=== PATIENT | female | born 1995 | race Caucasian/White ===

== ENCOUNTER → 2016-09-26 | Outpatient (CLI) | payer BC ==
[2016-10-19 10:26] LABS: Mis test requested (Blood) ChromosomeMicroarray
== END | disposition home or self-care (01) ==
LOC: LABWHC1 13:26
PROVIDERS: ATTEND Pediatrics Neonatal-Perinatal Medicine
DX: Z09 Encounter for follow-up examination after completed treatment for conditions other than malignant neoplasm (principal); Z82.79 Family history of other congenital malformations, deformations and chromosomal abnormalities
CPT/HCPCS: 36415; 81229

== ENCOUNTER → 2016-10-26 | Outpatient (CLI) | payer BC ==
[2016-10-26 14:19] LABS: Basophils % (A) 0 %; CH 30.8; Eosinophils # (A) 0.1 k/uL (0-0.7); Eosinophils % (A) 1 %; HCT 36.7 % (34.0-46.0); HDW 2.73; Luc # (Auto) 0.15; Luc % (Auto) 2; Lymphocytes # (A) 1.8 k/uL (1.0-4.8); Lymphocytes % (A) 19 %; MCH 29.8 pg (25.0-35.0); MCHC 32.7 g/dL (31.0-37.0); Mean Platelet Volume 8.7; Monocytes # (A) 0.5 k/uL (0-1.0); Monocytes % (A) 5 %; Neutrophils # (A) 6.8 k/uL (1.3-7.7); Neutrophils % (A) 73 %; RBC 4.03 m/uL (3.80-5.40); RDW 12.6 % (11.5-15.5); WBC 9.3 k/uL (3.8-10.6); WBC (Perox) 9.62
== END | disposition home or self-care (01) ==
LOC: LABPAT 14:06
PROVIDERS: ATTEND Obstetrics & Gynecology
DX: Z01.812 Encounter for preprocedural laboratory examination (principal)
CPT/HCPCS: 85025

== ENCOUNTER 2016-11-02 06:31 | Day surgery (SDC) | payer BC ==
[2016-10-31 12:37] VITALS: BMI 21.9
--- NOTE | 2016-11-01 20:20 | P.HPOB ---
History of Present Illness H&P Date: 11/01/16 Chief Complaint: Family planning This is a 21-year-old female 2 para 1011 who presents for laparoscopic tubal ligation for family planning purposes. Obstetrical history: . History of 1 vaginal delivery at term. 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 Gynecologic history: No history of sexual transmitted diseases. 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 Review of Systems Constitutional: Denies chills, Denies fever Ears, nose, mouth and throat: Denies headache, Denies sore throat Cardiovascular: Denies chest pain, Denies shortness of breath Respiratory: Denies cough Gastrointestinal: Denies abdominal pain, Denies diarrhea, Denies nausea, Denies vomiting Genitourinary: Denies abnormal vaginal bleeding Musculoskeletal: Denies myalgias Neurological: Denies numbness, Denies weakness Psychiatric: Reports depression Endocrine: Denies fatigue, Denies weight change Past Medical History Past Medical History: No Reported History Additional Past Medical History / Comment(s): scoliosis, childhood asthma, history of endometriosis History of Any Multi-Drug Resistant Organisms: None Reported Additional Past Surgical History / Comment(s): left ovarian cyst- laparoscopic [id number], D&C Past Anesthesia/Blood Transfusion Reactions: No Reported Reaction Past Psychological History: No Psychological Hx Reported Smoking Status: Former smoker Past Alcohol Use History: None Reported Additional Past Alcohol Use History / Comment(s): STARTED SMOKING AT AGE 17 QUIT 2013 Past Drug Use History: None Reported - Past Family History Father Family Medical History: Hypertension Mother Family Medical History: No Reported History Medications and Allergies Home Medications Medication Instructions Recorded Confirmed Type No Known Home Medications [No 10/31/16 10/31/16 History Known Home Medications] Allergies Allergy/AdvReac Type Severity Reaction Status Date / Time No Known Allergies Allergy Verified 10/31/16 12:11 Exam Osteopathic Statement: *. No significant issues noted on an osteopathic structural exam other than those noted in the History and Physical/Consult. HEENT: Within normal limits Heart: Regular rate and rhythm Lungs: Clear to auscultation bilaterally Abdomen: Soft, nontender Pelvic exam: Uterus is retroverted, mildly tender, with no adnexal masses or tenderness noted. Extremities: Negative Homans Assessment and Plan (1) Family planning Status: Acute Plan: Proceed with laparoscopic bilateral tubal ligation via fulguration. I have discussed the risks, benefits, and alternative therapies for the above- mentioned procedure and for both sedation/anesthesia as well as necessary blood products administration, if indicated, as they pertain to this patient. The patient has indicated her understanding and acceptance of the risks and procedures discussed.
[~2016-11-02 06:31] MED LIST: DEXAMETHASONE SOD PHOSPHATE 10 MG/ML 1 ML VIAL IV ONE; LACTATED RINGERS 1,000 ML IV SCH; MIDAZOLAM 2 MG/2 ML VIAL IV PRN; ONDANSETRON 4 MG/2 ML VIAL IVP ONE; Pre Op ABX Message 1 EACH MISC MISCELLANE ONE; SCOPOLAMINE 1.5MG/72HR PATCH TRANSDERM ONE
[2016-11-02] MEDS ORDERED: BUPIVACAINE (PF) 0.25% 30 ML VIAL SQ ONE ×3 (07:23)
[2016-11-02] MEDS ORDERED: fentaNYL (PF) 50 MCG/ML 2 ML AMP ONE (07:38)
[2016-11-02] MEDS ORDERED: PROPOFOL 10 MG/ML 20 ML VIAL IV ONE (07:38)
[2016-11-02] MEDS ORDERED: SUCCINYLCHOLINE CHLORIDE 100 MG/5 ML SYR IV ONE (07:38)
[2016-11-02] MEDS ORDERED: ROCURONIUM BROMIDE 10 MG/ML 10 ML VIAL IV ONE (07:38)
[2016-11-02] MEDS ORDERED: MIDAZOLAM 2 MG/2 ML VIAL ONE (07:38)
[2016-11-02] MEDS ORDERED: KETOROLAC 30 MG/ML 1 ML VIAL ONE (07:38)
[2016-11-02] MEDS ORDERED: NEOSTIGMINE 1 MG/ML 10 ML VIAL ONE (07:38)
[2016-11-02] MEDS ORDERED: HYDROmorphone (PF) 1 MG/ML ONE (07:38)
[2016-11-02] MEDS ORDERED: GLYCOPYRROLATE 0.2 MG/ML 2 ML VIAL ONE (07:38)
--- NOTE | 2016-11-02 08:10 | P.OP ---
Date of Procedure: 11/02/16 Preoperative Diagnosis: Family-planning Postoperative Diagnosis: Same Procedure(s) Performed: Laparoscopic bilateral tubal ligation via fulguration Anesthesia: MARINA Surgeon: Leda Martinez Estimated Blood Loss (ml): 5 Pathology: none sent Condition: stable Disposition: same day Indications for Procedure: This is a 21-year-old female 2 para 1011 who presents for laparoscopic tubal ligation for family planning purposes. Operative Findings: Normal uterus ovaries and tubes are noted. Uterus is retroverted and sounded to 9 cm. Appendix is visualized and appears normal. Description of Procedure: The patient is taken to the operating room where she is placed in the dorsal lithotomy position. She is prepped and draped in the normal sterile fashion. Examination is performed under anesthesia. Uterus is found to be in a retroverted position. No adnexal masses were palpated. Next a bivalve speculum was placed in the patient's vagina. A single-tooth tenaculum was used to grasp the anterior lip of the cervix. The uterus was sounded to 9 cm. The kroner uterine manipulator was then inserted through the cervix and the balloon was inflated. The single-tooth tenaculum is removed speculum was removed gloves were changed and attention was turned to the abdomen. The infraumbilical fold was grasped in transverse fashion with 2 Allis clamps. A small transverse incision was made with a scalpel. A hemostat was used to carry the incision down to the underlying layer of fascia. A towel clip was placed above the umbilicus for retraction. A 10 mm disposable bladeless trocar was then inserted into the peritoneal cavity under direct visualization. Once inside, pneumoperitoneum was achieved with CO2 gas. The insert was removed and the camera was placed. Intraperitoneal placement was confirmed. No bleeding was noted. Next the patient was placed in Trendelenburg position. A small stab incision was made suprapubically and a 5 mm disposable bladeless trocar was inserted into the peritoneal cavity under direct visualization. Once inside pelvic contents were inspected. Next a bipolar Kleppinger instrument was placed through the inferior trocar and the midportion of each tube was brought away from other structures and completely fulgurated on approximate 2-3 cm segment of each tube. Excellent hemostasis was noted. A picture was taken. Pneumoperitoneum was released after the inferior trocar was removed under direct visualization. The upper trocar was then removed. The fascial incision was closed with 0 Vicryl suture in interrupted [id number] stitch. The skin incisions were then closed with 4-0 Vicryl suture in a subcuticular fashion. Skin incisions were injected with quarter percent Marcaine. Approximately 6 mL were used. Next the kroner uterine manipulator was removed. Minimal bleeding was noted. All sponge and needle counts are correct. The patient is then taken to recovery room in stable condition.
[2016-11-02 08:29] VITALS: TEMP 97.1
[2016-11-02] MEDS ORDERED: LACTATED RINGERS 1,000 ML IV ONE ×2 (08:44)
[2016-11-02] MEDS: HYDROmorphone 1 MG/ML 1 ML SYRINGE IVP PRN ×4 (08:51→09:15)
[2016-11-02] MEDS ORDERED: diphenhydrAMINE 50 MG/ML 1 ML VIAL IVP ONE (09:54)
[2016-11-02 10:42] VITALS: RESP 18
[2016-11-02] MEDS ORDERED: Acetaminophen-Codeine 300-30mg TAB PO ONE (11:48)
[2016-11-02 12:30] VITALS: BP 116/72; PULSE 73
== END 2016-11-02 12:54 | disposition home or self-care (01) ==
LOC: OR 06:31
PROVIDERS: ATTEND Obstetrics & Gynecology
DX: Z30.2 Encounter for sterilization (principal); N85.4 Malposition of uterus; Z87.891 Personal history of nicotine dependence
CPT/HCPCS: 81025; 58670; J2250; J1200; J1100; J2710; J2405; J3010; J1885; J1170; J0330; J2704

== ENCOUNTER → 2017-03-14 | Outpatient (CLI) | payer BC ==
--- NOTE | 2017-03-15 08:35 | US ---
EXAMINATION TYPE: US pelvic complete DATE OF EXAM: 03/14/2017 COMPARISON: NONE CLINICAL HISTORY: Previous L ovarian cyst N83.20. Pain TECHNIQUE: Transabdominal (TA) Date of LMP: 02/27/2017 EXAM MEASUREMENTS: Uterus: 7.6 x 3.6 x 5.7 cm Endometrial Stripe: 1.3 cm Right Ovary: 2.2 x 1.5 x 1.3 cm Left Ovary: 4.4 x 3.5 x 3.2 cm 1. Uterus: Anteverted wnl 2. Endometrium: wnl 3. Right Ovary: wnl 4. Left Ovary: Complex area with septations visualized measuring 3.9 x 3.1 x 3.2 cm 5. Bilateral Adnexa: wnl 6. Posterior cul-de-sac: wnl Complex area with septations visualized measuring 3.9 x 3.1 x 3.2 cm. Report called to the physician office. IMPRESSION: 1. Complex lesion left ovary measuring 3.9 cm. Differential diagnosis would include hemorrhagic cysts , dermoid and complex neoplasms of the ovary. Ectopic not excluded and also in the differen tial diagnosis. Correlate with serial beta hCG and pelvic ultrasound as clinically warranted.
== END | disposition home or self-care (01) ==
LOC: RADUSMAIN 17:29
PROVIDERS: ATTEND Obstetrics & Gynecology
DX: N83.9 Noninflammatory disorder of ovary, fallopian tube and broad ligament, unspecified (principal)
CPT/HCPCS: 76856

== ENCOUNTER → 2017-03-15 | Outpatient (CLI) | payer BC | END | disposition home or self-care (01) | LOC: LABWHC1 12:20 | PROVIDERS: ATTEND Obstetrics & Gynecology | DX: N83.9 Noninflammatory disorder of ovary, fallopian tube and broad ligament, unspecified (principal) | CPT/HCPCS: 36415; 86304 ==

== ENCOUNTER 2017-04-23 06:37 | Day surgery (SDC) | payer BC ==
[2017-04-16 14:06] VITALS: BMI 23.5
--- NOTE | 2017-04-22 17:08 | P.HPOB ---
History of Present Illness H&P Date: 04/22/17 Chief Complaint: Pelvic pain, left ovarian cyst, dysmenorrhea, menorrhagia This is a 21-year-old female 2 para 1 who presents for dilation and curettage with hysteroscopy and NovaSure endometrial ablation secondary to menorrhagia with regular cycle and dysmenorrhea. Her menses occur monthly but last 5 days with 3 days of severe cramping and heavy and sees to where she has to change a pad every hour. She does have a history of endometriosis and the symptoms have been going on for several months now. She is also consented to a laparoscopy with possible drainage of ovarian cyst, possible lysis of adhesions , and possible ablation of endometriosis, possible left salpingo-oophorectomy only if necessary. The patient did have a recent pelvic ultrasound that showed a complex left ovarian cyst with septations measuring 3.9 x 3.1 x 3.2 cm. Her previous ultrasound showed the same cyst at 1.7 cm. CA-125 level was normal. She has been having increasing pelvic pain over the last 4 months and describes it as sharp and crampy pain in the left lower quadrant area. She does have a history of a previous tubal ligation. She does also have a history of a laparoscopy in 2013 in which a 7 cm left ovarian cyst was drained. Obstetrical history: . History of 1 vaginal delivery. 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 Gynecologic history: She has no history of sexual transmitted diseases. She does have a history of a tubal ligation. 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 Review of Systems Constitutional: Denies chills, Denies fever Eyes: denies blurred vision, denies pain Ears, nose, mouth and throat: Denies headache, Denies sore throat Cardiovascular: Denies chest pain, Denies shortness of breath Respiratory: Denies cough Gastrointestinal: Reports abdominal pain, Denies diarrhea, Denies nausea, Denies vomiting Genitourinary: Reports dysmenorrhea, Reports pelvic pain Menstruation: Reports period heavy, Reports period spotting (Breakthrough bleeding) Musculoskeletal: Denies myalgias Integumentary: Denies pruritus, Denies rash Neurological: Denies numbness, Denies weakness Psychiatric: Denies anxiety, Denies depression Endocrine: Denies fatigue, Denies weight change Past Medical History Past Medical History: Asthma Additional Past Medical History / Comment(s): scoliosis, exercise induced asthma , endometriosis History of Any Multi-Drug Resistant Organisms: None Reported Past Surgical History: Tubal Ligation Additional Past Surgical History / Comment(s): left ovarian cyst, laparoscopic [id number], tubes katt ears Past Anesthesia/Blood Transfusion Reactions: No Reported Reaction Past Psychological History: No Psychological Hx Reported Smoking Status: Never smoker Past Alcohol Use History: None Reported Past Drug Use History: None Reported - Past Family History Father Family Medical History: Hypertension Mother Family Medical History: No Reported History Medications and Allergies Home Medications Medication Instructions Recorded Confirmed Type Albuterol Sulfate [Proair Hfa] 1 - 2 puff INHALATION Q6HR PRN 04/16/17 04/16/17 History Methylphenidate HCl [Ritalin] 5 mg PO BID 04/16/17 04/16/17 History Allergies Allergy/AdvReac Type Severity Reaction Status Date / Time No Known Allergies Allergy Verified 04/16/17 13:51 Exam Osteopathic Statement: *. No significant issues noted on an osteopathic structural exam other than those noted in the History and Physical/Consult. HEENT: Within normal limits Heart: Regular rate and rhythm Lungs: Clear to auscultation bilaterally Abdomen, soft, mild tenderness Pelvic exam: Uterus is small, retroverted, nontender with no adnexal masses palpated but tenderness noted in the left adnexal region Extremities: Negative Homans Assessment and Plan (1) Pelvic pain Status: Acute (2) Complex cyst of left ovary Status: Acute (3) Dysmenorrhea Status: Acute (4) Menorrhagia with regular cycle Status: Acute Plan: Plan is to proceed with dilation and curettage with hysteroscopy and NovaSure endometrial ablation along with laparoscopy with possible drainage of ovarian cyst, possible lysis of adhesions, possible ablation of endometriosis, and possible left salpingo-oophorectomy. I have discussed the risks, benefits, and alternative therapies for the above- mentioned procedure and for both sedation/anesthesia as well as necessary blood products administration, if indicated, as they pertain to this patient. The patient has indicated her understanding and acceptance of the risks and procedures discussed.
[~2017-04-23 06:37] MED LIST changes: +LIDOCAINE 1% 20 ML VIAL (10MG/ML) FOR IV START INTRADERMA PRN
[2017-04-23] MEDS ORDERED: MIDAZOLAM 2 MG/2 ML VIAL ONE (07:48)
[2017-04-23] MEDS ORDERED: GLYCOPYRROLATE 0.2 MG/ML 2 ML VIAL ONE (07:48)
[2017-04-23] MEDS ORDERED: fentaNYL (PF) 50 MCG/ML 2 ML AMP ONE (07:48)
[2017-04-23] MEDS ORDERED: KETOROLAC 30 MG/ML 1 ML VIAL ONE (07:48)
[2017-04-23] MEDS ORDERED: MORPHINE SULFATE 10 MG/ML SYRINGE ONE (07:48)
[2017-04-23] MEDS ORDERED: PROPOFOL 10 MG/ML 20 ML VIAL IV ONE (07:48)
[2017-04-23] MEDS ORDERED: SUCCINYLCHOLINE CHLORIDE 100 MG/5 ML SYR IV ONE (07:48)
[2017-04-23] MEDS ORDERED: NEOSTIGMINE 1 MG/ML 10 ML VIAL ONE (07:48)
[2017-04-23] MEDS ORDERED: ROCURONIUM BROMIDE 10 MG/ML 10 ML VIAL IV ONE (07:48)
[2017-04-23] MEDS ORDERED: LIDOCAINE 1% INJ 10MG/ML (20 ML MDV) ONE (07:48)
[2017-04-23] MEDS ORDERED: BUPIVACAINE (PF) 0.25% 30 ML VIAL SQ ONE ×2 (08:27→08:38)
[2017-04-23 09:04] VITALS: TEMP 97.4
--- NOTE | 2017-04-23 09:10 | P.OP ---
Date of Procedure: 04/23/17 Preoperative Diagnosis: 1. Menorrhagia with regular cycle. 2. Dysmenorrhea. 3. Pelvic pain. 4. Left ovarian cyst. Postoperative Diagnosis: Same Procedure(s) Performed: Dilation and curettage with hysteroscopy and NovaSure endometrial ablation Laparoscopy, drainage of left ovarian cyst, ablation of endometriosis Implants: Anesthesia: FRANTZA Surgeon: Leda Martinez Estimated Blood Loss (ml): 10 Pathology: other (Endometrial curettings) Condition: stable Disposition: same day Indications for Procedure: This is a 21-year-old female 2 para 1 who presents for dilation and curettage with hysteroscopy and NovaSure endometrial ablation secondary to menorrhagia with regular cycle and dysmenorrhea. Her menses occur monthly but last 5 days with 3 days of severe cramping and heavy and sees to where she has to change a pad every hour. She does have a history of endometriosis and the symptoms have been going on for several months now. She is also consented to a laparoscopy with possible drainage of ovarian cyst, possible lysis of adhesions , and possible ablation of endometriosis, possible left salpingo-oophorectomy only if necessary. The patient did have a recent pelvic ultrasound that showed a complex left ovarian cyst with septations measuring 3.9 x 3.1 x 3.2 cm. Her previous ultrasound showed the same cyst at 1.7 cm. CA-125 level was normal. She has been having increasing pelvic pain over the last 4 months and describes it as sharp and crampy pain in the left lower quadrant area. She does have a history of a previous tubal ligation. She does also have a history of a laparoscopy in 2013 in which a 7 cm left ovarian cyst was drained. Operative Findings: Uterus is sounded to 8 cm, cervix is sounded to 3 cm. Uterus is mid position with no adnexal masses palpated. Upon hysteroscopy, and secretory phase is noted with both tubal ostia visualized. A moderate amount of endometrial curettings are obtained. Upon laparoscopy, uterus appears normal. Tubes showed evidence of previous tubal ligation. Right ovary appears normal. Left ovary has a small approximately 2-3 cm hemorrhagic cyst noted with a spot of endometriosis also noted on the left ovary. Posterior cul-de-sac appears clear. Anterior uterus appears clear. Appendix is visualized and appears to have fecaliths within it however no inflammation is noted. Liver edge and gallbladder edge appeared normal. Description of Procedure: The patient is taken to the operating room. She is placed in the dorsal lithotomy position after general anesthesia was given. She is prepped and draped in the normal sterile fashion. Bladder is drained with a catheter and then removed. Pelvic exam is performed under anesthesia. Uterus is found to be mid position with no adnexal masses. She is placed in slight Trendelenburg position. A right angle retractor is used to visualize the cervix. The anterior lip of the cervix is grasped with a single-tooth tenaculum. Cervix is sounded to 3 cm. Uterus is sounded to 8 cm. Cervix is gently dilated with Nichols dilators until a hysteroscope could be passed. Hysteroscopy is performed using normal saline. The above noted findings are noted. Next a polyp forceps is introduced. A minimal amount of tissue was obtained. Next medium-sized size sharp curette was placed. A moderate amount of endometrial curettings were obtained. Next NovaSure array was inserted into the endometrial cavity. Length was set at 5 cm and width was determined to be 4.4 cm. Next cavity assessment was completed and passed on the first try. Next NovaSure array was fired at 121 W for 101 seconds. Next the array was removed, inspected and then discarded. Next the hysteroscope was reinserted. Uniform charring was noted. Pictures were taken. Hysteroscope was removed. Next the kroner uterine manipulator is inserted and the balloon is inflated. Single-tooth tenaculum was removed from the anterior lip of the cervix. Minimal bleeding was noted. All other instruments removed from the vagina. Next attention is turned to the abdomen. Gloves are changed. The infra-vocal fold was grasped in a transverse fashion with 2 Allis clamps. A small transverse incision is made using a scalpel. Next a hemostat is used to carry the incision down to the underlying layer fascia. A towel clip was placed above the umbilicus for retraction. Next an 11 mm disposable bladeless trochars inserted into the peritoneal cavity under direct visualization. Intraperitoneal placement is confirmed and pneumoperitoneum was achieved with CO2 gas. The camera was replaced and no bleeding is noted. Next a small stab incision is made superpubic Jerilyn 5 mm disposable bladeless trochars inserted into the peritoneal cavity under direct visualization. A probe was inserted and pelvic contents are inspected. She is placed in Trendelenburg position to better visualize the pelvic contents. The above noted findings are made. Next an aspirating needle was placed through the inferior trocar and a small stab incision is made into the left ovarian cyst. Dark old blood is extruded. Next a J-hook is used with monopolar cautery to open up this cyst wall. The J-hook is also used to cauterize the endometriosis implant on the left ovary. Excellent hemostasis is noted. There was a small scratch on the left fundus of the uterus from the aspirating needle. This was also cauterized with a J-hook. Excellent hemostasis is noted. Suction irrigation is carried out and excellent hemostasis is again noted. At this point after pictures are taken, the inferior trocar is removed under direct visualization and the pneumoperitoneum is released. The upper trocar is removed. The fascial incision on the upper trocar site is closed with 0 Vicryl suture in interrupted [id number] stitch. The skin incisions are then closed with 4-0 undyed Vicryl suture in a subcuticular fashion. Incision sites are then injected with cautery percent Marcaine. Approximately 7 mL are used. Next the kroner uterine manipulator is deflated and removed. Minimal bleeding is noted. All sponge and needle counts are correct and then the patient is taken to recovery room in stable condition.
[2017-04-23] MEDS: HYDROmorphone 1 MG/ML 1 ML SYRINGE IVP PRN ×2 (09:36→09:42)
[2017-04-23 09:45] VITALS: RESP 16
[2017-04-23] MEDS: MORPHINE SULFATE 4 MG/ML SYRINGE IVP ONE ×2 (09:49→09:56)
[2017-04-23] MEDS ORDERED: SODIUM CHLORIDE 0.9% 1,000 ML IV ONE (09:57)
[2017-04-23] MEDS ORDERED: Acetaminophen-Codeine 300-30mg TAB PO ONE (10:28)
[2017-04-23 11:12] VITALS: BP 118/71; PULSE 81
[2017-04-23] MEDS ORDERED: METOCLOPRAMIDE 5 MG/ML 2 ML VIAL IVP ONE (11:15)
== END 2017-04-23 11:58 | disposition home or self-care (01) ==
LOC: OR 06:37
PROVIDERS: ATTEND Obstetrics & Gynecology
DX: N92.0 Excessive and frequent menstruation with regular cycle (principal); N83.202 Unspecified ovarian cyst, left side; N94.6 Dysmenorrhea, unspecified; J45.909 Unspecified asthma, uncomplicated; Z98.51 Tubal ligation status; Z79.899 Other long term (current) drug therapy
CPT/HCPCS: 81025; 88305; 58563; 49322; J2250; J2270 ×2; J1100; J2710; J2765; J2405; J2001; J3010; J1885; J1170; J0330; J2704

== ENCOUNTER 2017-04-25 09:48 | Emergency (ER) | payer BC ==
[2017-04-25] MEDS ORDERED: RX INFO: IV CONTRAST WAS GIVEN 1 EACH MISC MISCELLANE PRN (10:40)
[2017-04-25] MEDS ORDERED: SODIUM CHLORIDE 0.9% 1,000 ML IV STA (10:40)
[2017-04-25] MEDS ORDERED: ORPHENADRINE 30 MG/ML 2 ML VIAL IVP STA (10:41)
--- NOTE | 2017-04-25 10:55 | ED ---
General Adult HPI - General Source: patient, RN notes reviewed Mode of arrival: ambulatory Limitations: no limitations <Cheyenne Foster - Last Filed: 04/25/17 12:44> <Aime Burris - Last Filed: 04/27/17 07:28> - General Chief complaint: Headache Stated complaint: POST OP COMPLICATIONS Time Seen by Provider: 04/25/17 10:27 - History of Present Illness Initial comments: 21-year-old female presents emergency Department with a chief complaint of back pain. Patient states that she had an ablation and ovarian cyst removal laparoscopically 2 days ago. Patient states she's continued to have this back discomfort up with her neck DOWN to the bottom of her spine. Patient denies a loss of bowel or bladder. She is still anesthesia. Patient denies any fever chills. Patient states her abdomen has continued to hurt since the procedures well. She called her ENTREPRENEUR's office and they informed her that she'll need to be evaluated him to go to the ER. Patient denies any nausea or vomiting with this. Patient states she is just having a lot of discomfort. Patient states that there is no other symptoms at this time.Patient denies any recent fever, chills, shortness of breath, chest pain, nausea vomiting, numbness or tingling, dysuria or hematuria, constipation or diarrhea, headaches or visual changes, or any other current symptoms. (Cheyenne Foster) - Related Data Home Medications Medication Instructions Recorded Confirmed Albuterol Sulfate [Proair Hfa] 1 - 2 puff INHALATION RT-Q6H PRN 04/16/17 Methylphenidate HCl [Ritalin] 5 mg PO BID 04/16/17 04/25/17 Ibuprofen [Motrin] 400 mg PO Q6HR PRN 04/25/17 04/25/17 Previous Rx's Medication Instructions Recorded Acetaminophen-Codeine 300-30mg 1 tab PO Q4H PRN #30 tablet 04/23/17 [Tylenol #3] Hydrocodone/Acetaminophen [Argyle 1 each PO Q6HR PRN #20 tab 04/25/17 5-325] Nitrofurantoin Macrocrystal 100 mg PO BID #14 cap 04/25/17 [Macrodantin] Allergies Allergy/AdvReac Type Severity Reaction Status Date / Time No Known Allergies Allergy Verified 04/25/17 10:32 Review of Systems ROS Other: All systems not noted in ROS Statement are negative. <CristianCheyenne - Last Filed: 04/25/17 12:44> ROS Other: All systems not noted in ROS Statement are negative. <Aime Burris Josie - Last Filed: 04/27/17 07:28> ROS Statement: Those systems with pertinent positive or pertinent negative responses have been documented in the HPI. Past Medical History Past Medical History: No Reported History Additional Past Medical History / Comment(s): scoliosis, childhood asthma History of Any Multi-Drug Resistant Organisms: None Reported Additional Past Surgical History / Comment(s): left ovarian cyst, laparoscopic [id number], d and c Past Anesthesia/Blood Transfusion Reactions: No Reported Reaction Past Psychological History: No Psychological Hx Reported Smoking Status: Former smoker Past Alcohol Use History: None Reported Past Drug Use History: None Reported - Past Family History Father Family Medical History: Hypertension Mother Family Medical History: No Reported History <Cheyenne Foster - Last Filed: 04/25/17 12:44> General Exam Limitations: no limitations <CristianCheyenne - Last Filed: 04/25/17 12:44> <HayesbrandonAime Josie - Last Filed: 04/27/17 07:28> - General Exam Comments Initial Comments: General: The patient is awake and alert, in no distress, and does not appear acutely ill. Eye: Pupils are equal, round and reactive to light, extra-ocular movements are intact; there is normal conjunctiva bilaterally. No signs of icterus. Ears, nose, mouth and throat: There are moist mucous membranes and no oral lesions. Neck: The neck is supple, there is no tenderness. Cardiovascular: There is a regular rate and rhythm. No murmur, rub or gallop is appreciated. Respiratory: Lungs are clear to auscultation, respirations are non-labored, breath sounds are equal. No wheezes, stridor, rales, or rhonchi. Gastrointestinal: Surgical incision sites appear well. Soft, non-distended, mildly diffusely tender abdomen without masses or organomegaly noted. There is no rebound or guarding present. No CVA tenderness. Bowel sounds are unremarkable. Back: There is no tenderness to palpation in the midline. There is no obvious deformity. No rashes noted. Musculoskeletal: Normal ROM, no tenderness, There is no pedal edema. There is no calf tenderness or swelling. Sensation intact. Pulses equal bilaterally 2+. Neurological: CN II-XII intact, There are no obvious motor or sensory deficits. Coordination appears grossly intact. Speech is normal. Skin: Skin is warm and dry and no rashes or lesions are noted. Psychiatric: Cooperative, appropriate mood & affect, normal judgment. 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 At this time patient's CAT scan has been reviewed Dr. Martinez was contacted by Dr. Chavez. This and we will start patient on Argyle for home for pain as well as antibiotics. We discussed follow-up return parameters all patient's questions. She stated she understood and she is very plan. She will be discharged. (Cheyenne Foster) 21-year-old female 2 days postop laparoscopic abdominal surgery. Patient is presenting with chief complaint of abdominal pain, dysuria, and headache. On initial evaluation patient is somewhat tachycardic and dehydrated. She does receive IV hydration in the emergency department. CT is obtained and does show intraperitoneal air consistent with recent laparoscopic procedure. No other acute findings. Urinalysis is positive for signs of infection. Case is discussed with Dr. Martinez. Patient will be given stronger pain medication, and antibiotics for urinary tract infection. She'll follow-up with Dr. Martinez in the next several days (Aime Burris) - Lab Data Lab Results 04/25/17 04/25/17 04/25/17 Range/Units 11:25 11:25 11:25 WBC 5.7 (3.8-10.6) k/uL RBC 4.36 (3.80-5.40) m/uL Hgb 13.1 (11.4-16.0) gm/dL Hct 38.9 (34.0-46.0) % MCV 89.2 (80.0-100.0) fL MCH 30.0 (25.0-35.0) pg MCHC 33.7 (31.0-37.0) g/dL RDW 14.0 (11.5-15.5) % Plt Count 166 (150-450) k/uL Neutrophils % 83 % Lymphocytes % 9 % Monocytes % 6 % Eosinophils % 1 % Basophils % 0 % Neutrophils # 4.7 (1.3-7.7) k/uL Lymphocytes # 0.5 L (1.0-4.8) k/uL Monocytes # 0.3 (0-1.0) k/uL Eosinophils # 0.0 (0-0.7) k/uL Basophils # 0.0 (0-0.2) k/uL Sodium 137 (137-145) mmol/L Potassium 4.1 (3.5-5.1) mmol/L Chloride 102 (98-107) mmol/L Carbon Dioxide 26 (22-30) mmol/L Anion Gap 9 mmol/L BUN 7 (7-17) mg/dL Creatinine 0.83 (0.52-1.04) mg/dL Est GFR (MDRD) Af Amer >60 (>60 ml/min/1.73 sqM) Est GFR (MDRD) Non-Af >60 (>60 ml/min/1.73 sqM) Glucose 107 H (74-99) mg/dL Calcium 9.2 (8.4-10.2) mg/dL Total Bilirubin 0.6 (0.2-1.3) mg/dL AST 18 (14-36) U/L ALT 23 (9-52) U/L Alkaline Phosphatase 64 (38-126) U/L Total Protein 6.7 (6.3-8.2) g/dL Albumin 4.0 (3.5-5.0) g/dL Urine Color Light Yellow Urine Appearance Cloudy H (Clear) Urine pH 7.5 (5.0-8.0) Ur Specific [place] 1.008 (1.001-1.035) Urine Protein 1+ H (Negative) Urine Glucose (UA) Negative (Negative) Urine Ketones Negative (Negative) Urine Blood Moderate H (Negative) Urine Nitrite Negative (Negative) Urine Bilirubin Negative (Negative) Urine Urobilinogen <2.0 (<2.0) mg/dL Ur Leukocyte Esterase Large H (Negative) Urine RBC 60 H (0-5) /hpf Urine WBC >182 H (0-5) /hpf Ur Squamous Epith Cells <1 (0-4) /hpf Urine Mucus Rare H (None) /hpf Disposition Time of Disposition: 12:45 <Cheyenne Foster - Last Filed: 04/25/17 12:44> <Aime Burris - Last Filed: 04/27/17 07:28> Clinical Impression: UTI (urinary tract infection), Pelvic pain Disposition: HOME SELF-CARE Condition: Stable Instructions: Urinary Tract Infection in Women (ED) Additional Instructions: Please use medication as discussed. Please follow up with family doctor if symptoms have not improved over the next two days. Please return to the emergency room if your symptoms increase or worsen or for any other concerns. Prescriptions: Hydrocodone/Acetaminophen [Argyle 5-325] 1 each PO Q6HR PRN #20 tab PRN Reason: Pain Nitrofurantoin Macrocrystal [Macrodantin] 100 mg PO BID #14 cap Referrals: Tray Carranza MD [Primary Care Provider] - 1-2 days
[2017-04-25 11:46] LABS: Basophils % (A) 0 %; CH 30.7; CHCM 34.5; Eosinophils % (A) 1 %; HCT 38.9 % (34.0-46.0); HDW 2.85; HGB 13.1 gm/dL (11.4-16.0); Luc # (Auto) 0.04; Luc % (Auto) 1; Lymphocytes # (A) 0.5 k/uL (1.0-4.8); Lymphocytes % (A) 9 %; MCHC 33.7 g/dL (31.0-37.0); MCV 89.2 fL (80.0-100.0); Mean Platelet Volume 8.3; Monocytes # (A) 0.3 k/uL (0-1.0); Monocytes % (A) 6 %; Neutrophils # (A) 4.7 k/uL (1.3-7.7); Neutrophils % (A) 83 %; RBC 4.36 m/uL (3.80-5.40); WBC 5.7 k/uL (3.8-10.6); WBC (Perox) 5.21
[2017-04-25 11:53] LABS: Appearance,Urine Cloudy (Clear); Bilirubin,Urine Negative (Negative); Glucose,Urine (UA) Negative (Negative); Ketones,Urine Negative (Negative); Leukocyte Esterase,Urine Large (Negative); Mucus,Urine Rare /hpf; Nitrite,Urine Negative (Negative); PH, Urine 7.5 (5.0-8.0); Particle Count 2741; Protein,Urine 1+ (Negative); RBC,Urine 60 /hpf (0-5); Specific Gravity,Urine 1.008 (1.001-1.035); Squamous Epithelial Cell,Urine <1 /hpf (0-4); UA Billing (MACRO vs. MICRO) MICRO; Urobilinogen,Urine <2.0 mg/dL (<2.0); WBC,Urine >182 /hpf (0-5)
[2017-04-25 11:58] LABS: ALT 23 U/L (9-52); AST 18 U/L (14-36); Alkaline Phosphatase 64 U/L (38-126); Anion Gap 9 mmol/L; Blood Urea Nitrogen 7 mg/dL (7-17); Calcium 9.2 mg/dL (8.4-10.2); Carbon Dioxide 26 mmol/L (22-30); Chloride 102 mmol/L (98-107); Glucose 107 mg/dL (74-99); Non-African American GFR(MDRD) >60 (>60 ml/min/1.73 sqM); Potassium 4.1 mmol/L (3.5-5.1); Sodium 137 mmol/L (137-145); Total Bilirubin 0.6 mg/dL (0.2-1.3); Total Protein 6.7 g/dL (6.3-8.2)
--- NOTE | 2017-04-25 12:20 | CT ---
EXAMINATION TYPE: CT abdomen pelvis w con DATE OF EXAM: 04/25/2017 HISTORY: Patient complains of low back pain, nausea, and headache post D&C and ablation on Saturday la paroscopically. CT DLP: 440.6mGycm Automated Exposure Control for Dose Reduction was Utilized. CONTRAST: CT scan of the abdomen and pelvis is performed with IV Contrast, patient injected with 100 mL of Omni paque 300. COMPARISON: 03/14/2017 FINDINGS: A moderate amount of pneumoperitoneum predominates anteriorly within the upper abdomen but insinuates between bowel loops and within the gallbladder fossa. Air is also noted within the endometrial cavit y without appreciable focal defect of the uterus. Pneumoperitoneum pneumoperitoneum is presumably pos tsurgical. Small amount of low-density pelvic free fluid is seen as well as redemonstration of a comp soham left adnexal lesion measuring approximately 3.5 x 2.9 cm. This is similar in size from the prior pelvic ultrasound of 03/14/2017. Complex septations are again seen within this region. Follicular blanco ges are noted of the right ovary. The endometrial cavity also contains blood products, status post D&C . The liver, spleen, kidneys, adrenal glands, and pancreas are of normal enhancement and morphology. No gross adenopathy within the abdomen or pelvis. Osseous structures are intact. Multiple prominent fl uid-filled bowel loops are nondilated. IMPRESSION: 1. Presumably postsurgical pneumoperitoneum and postsurgical air bubbles blood products in the endome trial cavity. 2. Similar appearing complex left adnexal lesion as well as right follicular changes.
[2017-04-25] MEDS ORDERED: HYDROcodone/APAP 5-325MG 1 EACH TAB PO STA (12:33)
[2017-04-25] MEDS ORDERED: SODIUM CHLORIDE 0.9% 1,000 ML IV ONE (12:33)
[2017-04-25 13:41] VITALS: BP 108/76; PULSE 84; RESP 18; TEMP 99
== END 2017-04-25 13:50 | disposition home or self-care (01) ==
LOC: EC 09:48
DX: N39.0 Urinary tract infection, site not specified (principal); R10.2 Pelvic and perineal pain; Z87.891 Personal history of nicotine dependence; Z79.899 Other long term (current) drug therapy
CPT/HCPCS: 36415; 80053; 85025; 81001; 87040; 87086; 74177; 99284; 96365; 96375; 96361 ×2; J2360; J0696; Q9967

== ENCOUNTER → 2018-07-11 | Outpatient (CLI) | payer BC ==
[2018-07-11 16:46] LABS: Basophils % (A) 0 %; Eosinophils # (A) 0.1 k/uL (0-0.7); Eosinophils % (A) 1 %; HCT 38.4 % (34.0-46.0); HGB 12.9 gm/dL (11.4-16.0); Lymphocytes # (A) 2.2 k/uL (1.0-4.8); Lymphocytes % (A) 25 %; MCH 30.4 pg (25.0-35.0); MCHC 33.6 g/dL (31.0-37.0); MCV 90.5 fL (80.0-100.0); Mean Platelet Volume 7.6; Monocytes # (A) 0.4 k/uL (0-1.0); Monocytes % (A) 4 %; Neutrophils # (A) 6.1 k/uL (1.3-7.7); Neutrophils % (A) 68 %; Platelet Count 246 k/uL (150-450); RBC 4.24 m/uL (3.80-5.40)
[2018-07-11 16:55] LABS: Anion Gap 9 mmol/L; Blood Urea Nitrogen 16 mg/dL (7-17); Calcium 9.7 mg/dL (8.4-10.2); Carbon Dioxide 25 mmol/L (22-30); Chloride 105 mmol/L (98-107); Glucose 87 mg/dL (74-99); Potassium 3.9 mmol/L (3.5-5.1); Sodium 139 mmol/L (137-145)
== END ==
LOC: LABPAT 16:04
PROVIDERS: ATTEND Obstetrics & Gynecology
DX: Z01.812 Encounter for preprocedural laboratory examination (principal)
CPT/HCPCS: 36415; 80048; 85025

== ENCOUNTER 2018-07-15 07:30 | Inpatient (IN) | payer BC ==
[2018-07-09 14:59] VITALS: BMI 26.9
--- NOTE | 2018-07-20 16:33 | P.HPOB ---
History of Present Illness H&P Date: 07/20/18 Chief Complaint: Pelvic pain, left ovarian cyst, endometriosis This is a 22-year-old female 2 para 1 who presents for total abdominal hysterectomy with left salpingo-oophorectomy and right salpingectomy secondary to large left ovarian cyst, pelvic pain, and history of endometriosis. In addition she complains of dyspareunia and pelvic pain and pelvic pressure. Her ultrasound showed a uterus measuring 6.7 x 3.8 x 3.2 cm with an endometrial thickness of 5 mm. Her right ovary appeared normal and her left ovary was enlarged at 6.6 cm with a complex 4 cm hemorrhagic cyst in a separate 3.4 cm septated cyst. Patient has already had an endometrial ablation and still continues to have pelvic pain. In addition she has already had laparoscopic drainage of left ovarian cyst and ablation of the endometriosis in 2013 and in 2016. The patient would like definitive surgical treatment to decrease her pelvic pain. She has already had a tubal ligation. She has tried control pills without success. Obstetrical history: . 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 Gynecologic history: No history of sexual transmitted diseases. She does have a history of a tubal ligation. She also has a history of endometriosis. Social history: She is . 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 Review of Systems Constitutional: Reports fatigue, Denies chills, Denies fever Eyes: denies blurred vision, denies pain Ears, nose, mouth and throat: Reports headache, Denies sore throat Cardiovascular: Denies chest pain, Denies shortness of breath Respiratory: Denies cough Gastrointestinal: Reports abdominal pain Genitourinary: Reports dyspareunia, Reports pelvic pain Menstruation: Reports amenorrhea Musculoskeletal: Denies myalgias Integumentary: Denies pruritus, Denies rash Neurological: Denies numbness, Denies weakness Psychiatric: Reports anxiety, Reports depression, Reports difficulty concentrating, Reports insomnia Endocrine: Reports weight change Hematologic/Lymphatic: Reports easy bruising Past Medical History Past Medical History: Asthma, Musculoskeletal Disorder Additional Past Medical History / Comment(s): Scoliosis, childhood asthma. Endometriosis History of Any Multi-Drug Resistant Organisms: None Reported Past Surgical History: Tubal Ligation, Uterine Ablation Additional Past Surgical History / Comment(s): Left ovarian cyst, laparoscopic drainage, multiple times, D&C. Past Anesthesia/Blood Transfusion Reactions: No Reported Reaction Past Psychological History: No Psychological Hx Reported Smoking Status: Former smoker Past Alcohol Use History: None Reported Additional Past Alcohol Use History / Comment(s): Quit smoking 3-4 yrs ago, smoked socially. Past Drug Use History: None Reported - Past Family History Father Family Medical History: Hypertension Mother Family Medical History: No Reported History Medications and Allergies Home Medications Medication Instructions Recorded Confirmed Type Citalopram Hydrobromide [CeleXA] 20 mg PO QAM 07/09/18 07/09/18 History Allergies Allergy/AdvReac Type Severity Reaction Status Date / Time No Known Allergies Allergy Verified 07/09/18 14:46 Exam Osteopathic Statement: *. No significant issues noted on an osteopathic structural exam other than those noted in the History and Physical/Consult. HEENT: Within normal limits Heart: Regular rate and rhythm Lungs: Clear to auscultation bilaterally Abdomen: Soft, nontender Pelvic exam: Uterus is anteverted, nontender, with no adnexal masses palpated. Left adnexa is tender. Extremities: Negative Homans Assessment and Plan (1) Pelvic pain Status: Acute Code(s): R10.2 - PELVIC AND PERINEAL PAIN SNOMED Code(s): 78429559 (2) Endometriosis Status: Acute Code(s): N80.9 - ENDOMETRIOSIS, UNSPECIFIED SNOMED Code(s): 588800612 (3) Complex cyst of left ovary Status: Acute Code(s): N83.292 - OTHER OVARIAN CYST, LEFT SIDE SNOMED Code(s ): 305282956 Plan: Proceed with total abdominal hysterectomy with left salpingo-oophorectomy and right salpingectomy. I have discussed the risks, benefits, and alternative therapies for the above- mentioned procedure and for both sedation/anesthesia as well as necessary blood products administration, if indicated, as they pertain to this patient. The patient has indicated her understanding and acceptance of the risks and procedures discussed.
[2018-07-21] MEDS ORDERED: ceFAZolin IN SWFI 2 GM/20 ML SYRINGE IVP ONE (05:00)
[2018-07-21] MEDS ORDERED: MIDAZOLAM 2 MG/2 ML VIAL IV PRN (05:42)
[2018-07-21] MEDS ORDERED: DEXAMETHASONE SOD PHOSPHATE 10 MG/ML 1 ML VIAL IV ONE (05:42)
[2018-07-21] MEDS ORDERED: ONDANSETRON 4 MG/2 ML VIAL IVP ONE (05:42)
[2018-07-21] MEDS ORDERED: LACTATED RINGERS 1,000 ML IV SCH (05:42)
[2018-07-21] MEDS ORDERED: SCOPOLAMINE 1.5MG/72HR PATCH TRANSDERM ONE (05:42)
[2018-07-21] MEDS ORDERED: fentaNYL (PF) 50 MCG/ML 2 ML AMP INTRATHECA ONE (06:35)
[2018-07-21] MEDS ORDERED: LIDOCAINE 1% 20 ML VIAL (10MG/ML) FOR IV START INTRADERMA ONE (06:41)
[2018-07-21] MEDS ORDERED: MORPHINE SULFATE 2 MG/ML SYRINGE IVP PRN (07:11)
[2018-07-21] MEDS ORDERED: NALOXONE 0.4 MG/ML 1 ML VIAL IV PRN (07:11)
[2018-07-21] MEDS ORDERED: NALBUPHINE 10 MG/ML VIAL (10ML MDV) IV PRN (07:11)
[2018-07-21] MEDS ORDERED: METOCLOPRAMIDE 5 MG/ML 2 ML VIAL IVP PRN ×2 (07:11→10:30)
[2018-07-21] MEDS ORDERED: ONDANSETRON 4 MG/2 ML VIAL IVP PRN ×2 (07:11→10:30)
[2018-07-21] MEDS ORDERED: diphenhydrAMINE 50 MG/ML 1 ML VIAL IVP PRN ×2 (07:11→10:30)
[2018-07-21] MEDS ORDERED: LIDOCAINE 1% INJ 10MG/ML (20 ML MDV) ONE (07:31)
[2018-07-21] MEDS ORDERED: GLYCOPYRROLATE 0.2 MG/ML 2 ML VIAL ONE (07:31)
[2018-07-21] MEDS ORDERED: fentaNYL (PF) 50 MCG/ML 2 ML AMP ONE (07:31)
[2018-07-21] MEDS ORDERED: MIDAZOLAM 2 MG/2 ML VIAL ONE (07:31)
[2018-07-21] MEDS ORDERED: SUCCINYLCHOLINE CHLORIDE 100 MG/5 ML SYR IV ONE (07:31)
[2018-07-21] MEDS ORDERED: PROPOFOL 10 MG/ML 20 ML VIAL IV ONE (07:31)
[2018-07-21] MEDS ORDERED: MORPHINE SULFATE (PF) 0.3 MG/0.3 ML SYR ONE (07:31)
[2018-07-21] MEDS ORDERED: NEOSTIGMINE 1 MG/ML 10 ML VIAL ONE (07:31)
[2018-07-21] MEDS ORDERED: ROCURONIUM BROMIDE 10 MG/ML 10 ML VIAL IV ONE (07:31)
[2018-07-21] MEDS ORDERED: LACTATED RINGERS 1,000 ML IV ONE (08:35)
--- NOTE | 2018-07-21 08:42 | P.OP ---
Date of Procedure: 07/21/18 Preoperative Diagnosis: Pelvic pain Large left ovarian cyst Endometriosis Postoperative Diagnosis: Same Procedure(s) Performed: Total abdominal hysterectomy with left salpingo-oophorectomy and right salpingectomy Anesthesia: GETA, spinal (Duramorph) Surgeon: Leda Martinez Pigment Mixer #1: Azam Palm Estimated Blood Loss (ml): 200 Pathology: other (Uterus with cervix, left tube and ovary, right fallopian tube) Condition: stable Disposition: floor Indications for Procedure: This is a 22-year-old female 2 para 1 who presents for total abdominal hysterectomy with left salpingo-oophorectomy and right salpingectomy secondary to large left ovarian cyst, pelvic pain, and history of endometriosis. In addition she complains of dyspareunia and pelvic pain and pelvic pressure. Her ultrasound showed a uterus measuring 6.7 x 3.8 x 3.2 cm with an endometrial thickness of 5 mm. Her right ovary appeared normal and her left ovary was enlarged at 6.6 cm with a complex 4 cm hemorrhagic cyst in a separate 3.4 cm septated cyst. Patient has already had an endometrial ablation and still continues to have pelvic pain. In addition she has already had laparoscopic drainage of left ovarian cyst and ablation of the endometriosis in 2013 and in 2017. The patient would like definitive surgical treatment to decrease her pelvic pain. She has already had a tubal ligation. She has tried control pills without success. Operative Findings: Uterus is small with no abnormalities visualized. Left ovary is enlarged with a chocolate cyst noted. Left tube and ovary are also adherent to the pelvic sidewall. Right tube appears normal and right ovary appears normal. Description of Procedure: The patient is taken to the operating room where she is placed in the dorsal supine position. She is prepped and draped in the normal sterile fashion including Cuellar catheter insertion and vaginal prep. A Pfannenstiel skin incision is made through the previous laparotomy scar with a scalpel. A second knife was used to carry the incision down to the underlying layer of fascia. The fascia was nicked in the midline with a scalpel and then extended laterally bilaterally with Tena scissors. The superior aspect of the fascial incision was grasped with Sonja clamps, elevated off the underlying rectus muscle in the midline and then cut with Tena scissors. The inferior aspect of the fascial incision was grasped with Sonja clamps, elevated off the underlying rectus muscle in the midline and then cut with Tena scissors. Next the peritoneum was identified and entered sharply with Tena scissors. It is extended superiorly and in fairly with Metzenbaum scissors with good visualization of underlying structures. Next the Rk retractor is placed in the bladder blade was inserted. The bowels were packed with a 3 yard laparotomy sponge. Next the uterus is brought up incision and the corneal regions are grasped with Monik clamps on both sides. The left tube and ovary was manually dissected away from the left pelvic sidewall. In the process a large chocolate cyst was ruptured. The fluid was suctioned. The uterine ovarian ligament is clamped with a Denys clamp, cut with Tena scissors, and then sutured with 0 Vicryl suture in Denys transfixion stitch. The remaining pedicle including the mesosalpinx in the uterine ovarian ligament were clamped with a Denys clamp, cut with Tena scissors, and sutured with 0 Vicryl suture in Denys transfixion stitch. The right fallopian tube was then grasped with a Denys clamp, cut, and then removed from the field. The uterine ovarian ligament is then clamped with a Denys clamp, cut with Tena scissors, and sutured with 0 Vicryl suture in Denys transfixion stitch. The vesicouterine peritoneum was sharply dissected away from the bladder with Metzenbaum scissors and pushed inferiorly. The uterine arteries are then cut with Tena scissors, and sutured with 0 Vicryl suture in Denys transfixion stitches. Next the cardinal ligaments were clamped on either side with Denys clamp, cut with Tena scissors, and sutured with 0 Vicryl suture in Denys transfixion stitches. The uterosacral ligaments are clamped on either side with Denys clamps, cut with Tena scissors, and sutured with 0 Vicryl suture in Denys transfixion stitches on either side. The edges of the vaginal cuff were clamped on either side with a Denys clamp, cut with Tena scissors, and sutured with 0 Vicryl suture in Denys transfixion stitches and held on either side. The vaginal mucosa was then cut just below the level of the cervix and the specimen is removed from the field. The edges of the vaginal cuff were held with Sonja clamps. Next the previously held corners of each side of the vaginal cuff were then whipstitched along the connective tissue on either side and brought through the corner of the cuff and tied. Next the vaginal cuff was sutured with 0 Vicryl suture in a running locked fashion. Hemostasis was noted. Copious irrigation is carried out with warm saline. Excellent hemostasis is noted. The vesicouterine peritoneum was then reapproximated to the cuff with 3-0 Vicryl suture in a running fashion. Irrigation was carried out. Excellent hemostasis was noted. All sponges are removed from the abdomen. The peritoneum is then closed with 0 Vicryl suture in a running fashion. The muscle was then reapproximated with 0 Vicryl suture in interrupted fashion. The fascia layer is then closed with 0 PDS suture in a running fashion with the knots buried on either side and in the midline. Next the subcutaneous tissues closed with 2-0 Vicryl suture in a running fashion. The skin is closed with norberto. All sponge and needle counts are correct and the patient is taken to recovery room in stable condition.
[2018-07-21] MEDS: HYDROmorphone 1 MG/ML 1 ML SYRINGE IVP PRN ×4 (08:49→09:20)
[2018-07-21] MEDS ORDERED: MIDAZOLAM 2 MG/2 ML VIAL IV ONE (09:49)
[2018-07-21] MEDS ORDERED: ZOLPIDEM 5 MG TAB PO PRN (10:30)
[2018-07-21] MEDS ORDERED: HYDROcodone/APAP 5-325MG 1 EACH TAB PO PRN (10:30)
[2018-07-21] MEDS: CITALOPRAM HYDROBROMIDE 20 MG TAB PO SCH (11:00)
[2018-07-21] MEDS: SENNOSIDES-DOCUSATE SODIUM 1 EACH TAB PO SCH ×2 (11:00→19:59)
[2018-07-21] MEDS: KETOROLAC 30 MG/ML 1 ML VIAL IVP PRN ×2 (13:50→19:59)
[2018-07-21] MEDS: LACTATED RINGERS 1,000 ML IV SCH ×2 (21:06→21:07)
[2018-07-21] MEDS: HYDROcodone/APAP 7.5-325MG 1 EACH TAB PO PRN (23:19)
[2018-07-22] MEDS: HYDROcodone/APAP 7.5-325MG 1 EACH TAB PO PRN (04:52)
[2018-07-22] MEDS ORDERED: ACETAMINOPHEN TAB 325 MG TAB PO PRN (07:44)
--- NOTE | 2018-07-22 08:55 | P.PN ---
Subjective Progress Note Date: 07/22/18 Principal diagnosis: Status post OWEN LSO with right salpingectomy postoperative day #1 Patient has been doing okay. She is ambulating. She is not passing flatus yet but she is burping. Her pain is fairly well controlled with ibuprofen and Hope. Bleeding has been minimal. She is urinating. Objective - Vital Signs Vital signs: Vital Signs Temp 97.7 F 07/22/18 04:00 Pulse 94 07/22/18 04:00 Resp 14 07/22/18 06:00 BP 100/63 07/22/18 04:00 Pulse Ox 99 07/22/18 00:00 Intake & Output 07/21/18 07/22/18 07/22/18 18:59 06:59 18:59 Intake Total 1750 Output Total 600 850 Balance 1150 -850 Weight 78.018 kg Intake: IV 1750 Invasive Line 1 1000 Output: Urine 400 850 Uretheral (Cuellar) 300 550 Estimated Blood Loss 200 - Constitutional General appearance: Present: no acute distress - Gastrointestinal Gastrointestinal Comment(s): Incision is clean dry and intact with norberto in place General gastrointestinal: Present: decreased bowel sounds (Faint bowel sounds 4 ), soft, tenderness (Mild) Assessment and Plan Assessment: Status post OWEN LSO with right salpingectomy postoperative day #1 (1) Pelvic pain Current Visit: No Status: Acute Code(s): R10.2 - PELVIC AND PERINEAL PAIN SNOMED Code(s): 17212763 (2) Endometriosis Current Visit: No Status: Acute Code(s): N80.9 - ENDOMETRIOSIS, UNSPECIFIED SNOMED Code(s): 030620478 (3) Complex cyst of left ovary Current Visit: No Status: Acute Code(s): N83.292 - OTHER OVARIAN CYST, LEFT SIDE SNOMED Code(s): 732788838 Plan: Will advance diet as tolerated after flatus. Encouraged ambulation. Advised to alternate between Hope and ibuprofen for pain control.
[2018-07-22 08:58] LABS: Basophils % (A) 0 %; Eosinophils % (A) 1 %; HCT 35.7 % (34.0-46.0); HGB 12.1 gm/dL (11.4-16.0); Lymphocytes # (A) 2.1 k/uL (1.0-4.8); Lymphocytes % (A) 28 %; MCH 30.6 pg (25.0-35.0); MCHC 33.9 g/dL (31.0-37.0); MCV 90.3 fL (80.0-100.0); Mean Platelet Volume 8.2; Monocytes # (A) 0.3 k/uL (0-1.0); Monocytes % (A) 4 %; Neutrophils % (A) 66 %; Platelet Count 200 k/uL (150-450); RBC 3.95 m/uL (3.80-5.40); RDW 12.9 % (11.5-15.5); WBC 7.5 k/uL (3.8-10.6)
[2018-07-22] MEDS: KETOROLAC 30 MG/ML 1 ML VIAL IVP PRN (09:03)
[2018-07-22] MEDS: SENNOSIDES-DOCUSATE SODIUM 1 EACH TAB PO SCH (09:05)
[2018-07-22] MEDS: CITALOPRAM HYDROBROMIDE 20 MG TAB PO SCH (10:02)
[2018-07-22] MEDS: SIMETHICONE 80 MG CHEWABLE PO PRN ×2 (12:05→16:24)
[2018-07-22] MEDS: IBUPROFEN 600 MG TAB PO PRN (13:48)
[2018-07-22 14:12] VITALS: RESP 16
[2018-07-22] MEDS: diphenhydrAMINE 50 MG CAP PO SCH (16:22)
[2018-07-23] MEDS: IBUPROFEN 600 MG TAB PO PRN ×2 (00:09→08:17)
[2018-07-23] MEDS: SENNOSIDES-DOCUSATE SODIUM 1 EACH TAB PO SCH ×2 (00:11→09:03)
[2018-07-23] MEDS: diphenhydrAMINE 50 MG CAP PO SCH ×2 (00:52→09:03)
[2018-07-23] MEDS: SIMETHICONE 80 MG CHEWABLE PO PRN (01:59)
[2018-07-23] MEDS: CITALOPRAM HYDROBROMIDE 20 MG TAB PO SCH (08:17)
--- NOTE | 2018-07-23 08:26 | P.DS ---
Providers Date of admission: 07/21/18 05:48 Expected date of discharge: 07/23/18 Attending physician: Leda Martinez Primary care physician: Tray Billt - Discharge Diagnosis(es) (1) Pelvic pain Current Visit: No Status: Acute (2) Endometriosis Current Visit: No Status: Acute (3) Complex cyst of left ovary Current Visit: No Status: Acute Hospital Course: This is a 22-year-old female who underwent a total abdominal hysterectomy with left salpingo-oophorectomy and right salpingectomy on 07/21/2018. Her postoperative course has been essentially uncomplicated. She states her pain is been fairly well-controlled with ibuprofen and [place]. She does complain of a headache off-and-on. She has been urinating without difficulty. She has started to pass some flatus. She feels her pain is more related to gas. She is tolerating regular diet. Vital signs are stable. Abdomen is soft with positive bowel sounds 4. Incision is clean dry and intact with norberto in place. Extremities show negative Homans. Impression is status post total abdominal hysterectomy with left salpingo-oophorectomy and right salpingectomy postoperative day #2. Plan is to discharge home today. She will be given a prescription for ibuprofen and [place]. She has signed the opioid start talking form and was counseled regarding narcotics. Maps was checked. Norberto will be removed and Steri-Strips placed prior to discharge. Routine postoperative instructions are given. She is advised follow-up in the office in approximately 1 week for a postoperative check. She is advised to call the office if she has any further questions or concerns prior to her appointment time. Procedures: Total abdominal hysterectomy with left salpingo-oophorectomy and right salpingectomy on 07/21/2018 Patient Condition at Discharge: Stable Plan - Discharge Summary Discharge Rx Participant: Yes New Discharge Prescriptions: New HYDROcodone/APAP 7.5-325MG [[place] 7.5-325] 1 each PO Q6H PRN #28 tab PRN Reason: Moderate To Severe Pain Ibuprofen [Motrin] 600 mg PO Q6HR PRN #60 tab PRN Reason: Mild Discomfort Continue Citalopram Hydrobromide [CeleXA] 20 mg PO QAM Discharge Medication List Citalopram Hydrobromide [CeleXA] 20 mg PO QAM 07/09/18 [History] HYDROcodone/APAP 7.5-325MG [[place] 7.5-325] 1 each PO Q6H PRN #28 tab 07/23/18 [ Rx] Ibuprofen [Motrin] 600 mg PO Q6HR PRN #60 tab 07/23/18 [Rx] Follow up Appointment(s)/Referral(s): Leda Martinez DO [Doctor of Osteopathic Medicine] - 1 Week Activity/Diet/Wound Care/Special Instructions: Activity as tolerated. Diet as tolerated. May shower, but no tub baths for 1 week. No intercourse for 6 weeks. No heavy lifting. Discharge Disposition: HOME SELF-CARE
[2018-07-23 08:29] VITALS: BP 128/74; PULSE 95; TEMP 97.9
== END 2018-07-23 10:45 | disposition home or self-care (01) | DRG 743 ==
LOC: 2ORMAIN 07-21 05:48 → 4FBP 07-21 08:35
PROVIDERS: ADMIT Obstetrics & Gynecology; ATTEND Obstetrics & Gynecology
PROC: 0UT10ZZ Resection of Left Ovary, Open Approach (ICD-10-PCS; principal; 2018-07-21 07:30)
PROC: 0UT90ZZ Resection of Uterus, Open Approach (ICD-10-PCS; principal; 2018-07-21 07:30)
PROC: 0UT70ZZ Resection of Bilateral Fallopian Tubes, Open Approach (ICD-10-PCS; principal; 2018-07-21 07:30)
DX: N80.1 Endometriosis of ovary (principal); N83.292 Other ovarian cyst, left side; M41.9 Scoliosis, unspecified; N94.10 Unspecified dyspareunia; Z82.49 Family history of ischemic heart disease and other diseases of the circulatory system; Z87.891 Personal history of nicotine dependence
CPT/HCPCS: 81025; 85025; 86850; 86900; 86901; 88307

== ENCOUNTER 2019-03-21 13:57 | Emergency (ER) | payer OTHER, BC ==
[2019-03-21 14:11] VITALS: BP 135/89; PULSE 76; RESP 16; TEMP 99.4
[2019-03-21] MEDS ORDERED: IBUPROFEN 600 MG TAB PO STA (14:57)
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
--- NOTE | 2019-03-21 15:25 | XR ---
EXAMINATION TYPE: XR clavicle LT DATE OF EXAM: 03/21/2019 COMPARISON: NONE HISTORY: Pain TECHNIQUE: 2 views FINDINGS: I see no fracture nor dislocation. Soft tissues appear normal. IMPRESSION: Negative left clavicle exam.
== END 2019-03-21 16:02 | disposition home or self-care (01) ==
LOC: EC 13:57
DX: M25.512 Pain in left shoulder (principal); R51 Headache; Z87.891 Personal history of nicotine dependence; Z79.899 Other long term (current) drug therapy; V43.54XA Car driver injured in collision with van in traffic accident, initial encounter; Y92.410 Unspecified street and highway as the place of occurrence of the external cause
CPT/HCPCS: 99284

== ENCOUNTER 2019-04-01 19:14 | Emergency (ER) | payer BC, OTHER ==
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
[2019-04-01 21:16] VITALS: BP 123/94; PULSE 88; RESP 18; TEMP 97.9
== END 2019-04-01 21:14 | disposition home or self-care (01) ==
LOC: EC 19:14
DX: S46.912A Strain of unspecified muscle, fascia and tendon at shoulder and upper arm level, left arm, initial encounter (principal); R51 Headache; Z79.899 Other long term (current) drug therapy; Z87.891 Personal history of nicotine dependence; V43.52XA Car driver injured in collision with other type car in traffic accident, initial encounter; Y92.410 Unspecified street and highway as the place of occurrence of the external cause
CPT/HCPCS: 70450; 72072; 72125; 99284

== ENCOUNTER → 2021-09-11 | Outpatient (CLI) | payer OTHER ==
--- NOTE | 2021-09-11 13:55 | US ---
EXAMINATION TYPE: US venous doppler duplex LE LT DATE OF EXAM: 09/11/2021 1:40 PM COMPARISON: NONE CLINICAL HISTORY: M79.605 PAIN IN LOWER LT LEG. Left calf pain and bruising SIDE PERFORMED: Left TECHNIQUE: The lower extremity deep venous system is examined utilizing real time linear array sonog jatinder with graded compression, doppler sonography and color-flow sonography. VESSELS IMAGED: Common Femoral Vein Deep Femoral Vein Greater Saphenous Vein * Femoral Vein Popliteal Vein Small Saphenous Vein * Proximal Calf Veins (* superficial vessels) Left Leg: Appears negative for DVT Scanned left calf at patient's bruise: appears wnl IMPRESSION: Grayscale, color doppler, spectral doppler imaging performed of the deep veins of the lo wer extremities. There is normal flow, compressibility, vascular waveforms.
== END | disposition home or self-care (01) ==
LOC: RADUSWWP 13:10
PROVIDERS: ATTEND Family Medicine
DX: S80.12XA Contusion of left lower leg, initial encounter (principal); X58.XXXA Exposure to other specified factors, initial encounter